=== PATIENT | female | born 1945 | race Caucasian/White ===

== ENCOUNTER → 2016-12-01 | Outpatient (CLI) | payer MEDICARE, OTHER ==
[2016-12-01 15:08] LABS: HEMOGLOBIN 13.6 g/dL (11.7-16.4)
[2016-12-01 15:21] LABS: BLOOD UREA NITROGEN 14 mg/dL (7-18)
[2016-12-01 15:30] LABS: ASPARTATE AMINO TRANSFERASE 15 U/L (15-37); TOTAL IRON BINDING CAPACITY 384 mcg/dL (250-450); TRANSFERRIN 315 mg/dL (200-360)
== END | disposition home or self-care (01) ==
LOC: LAB 14:53
PROVIDERS: ATTEND Nurse Practitioner Primary Care
DX: Z12.11 Encounter for screening for malignant neoplasm of colon (principal); K21.9 Gastro-esophageal reflux disease without esophagitis; M19.90 Unspecified osteoarthritis, unspecified site; E78.1 Pure hyperglyceridemia; E03.9 Hypothyroidism, unspecified; E55.9 Vitamin D deficiency, unspecified; F51.01 Primary insomnia; R53.82 Chronic fatigue, unspecified; M25.559 Pain in unspecified hip; M25.511 Pain in right shoulder; M54.9 Dorsalgia, unspecified; M79.605 Pain in left leg; R42 Dizziness and giddiness; Z79.890 Hormone replacement therapy
CPT/HCPCS: 36415; 80053; 82728; 83540; 83550; 84443; 84466; 85025

== ENCOUNTER 2017-03-10 14:30 | Emergency (ER) | payer MEDICARE, OTHER ==
[~2017-03-10] VITALS: Ht 180.3 cm; Wt 84.0 kg
[2017-03-10 14:42] VITALS: BP 129/81
[2017-03-10] MEDS ORDERED: DIPH,PERTUSS(ACELL),TET VAC/PF 0.5 ML IM-VACC ONE (15:00)
[2017-03-10] MEDS ORDERED: MICROFIBRILLAR COLLAGEN 0.5GM/PACK TP ONE (15:00)
[2017-03-10] MEDS ORDERED: LIDOCAINE 1%, 20ML SQ ONE (15:00)
[2017-03-10] MEDS ORDERED: MICROFIBRILLAR COLLAGEN 1 GM TP ONE ×2 (15:30→15:55)
== END 2017-03-10 16:21 | disposition home or self-care (01) ==
LOC: ED 16:15
DX: S61.301A Unspecified open wound of left index finger with damage to nail, initial encounter (principal); X50.1XXA Overexertion from prolonged static or awkward postures, initial encounter; Y93.89 Activity, other specified; Y92.009 Unspecified place in unspecified non-institutional (private) residence as the place of occurrence of the external cause; Y99.9 Unspecified external cause status
CPT/HCPCS: 99282

== ENCOUNTER → 2017-05-04 | Outpatient (CLI) | payer MEDICARE, OTHER | END | disposition home or self-care (01) | LOC: CFH 14:13 | PROVIDERS: ATTEND Nurse Practitioner Primary Care | DX: R92.2 Inconclusive mammogram (principal); E03.9 Hypothyroidism, unspecified; E78.5 Hyperlipidemia, unspecified | CPT/HCPCS: 76642 ==

== ENCOUNTER → 2017-07-15 | Outpatient (CLI) | payer MEDICARE, OTHER | END | disposition home or self-care (01) | LOC: CFH 08:21 | PROVIDERS: ATTEND Nurse Practitioner Primary Care | DX: Z13.820 Encounter for screening for osteoporosis (principal); M85.88 Other specified disorders of bone density and structure, other site; K21.9 Gastro-esophageal reflux disease without esophagitis; M19.90 Unspecified osteoarthritis, unspecified site; E78.1 Pure hyperglyceridemia; E03.9 Hypothyroidism, unspecified; F51.01 Primary insomnia; Z79.890 Hormone replacement therapy; Z78.9 Other specified health status | CPT/HCPCS: 77080 ==

== ENCOUNTER → 2017-09-09 | Outpatient (CLI) | payer MEDICARE, OTHER | END | disposition home or self-care (01) | LOC: CFH 14:57 | PROVIDERS: ATTEND Nurse Practitioner Primary Care | DX: E03.4 Atrophy of thyroid (acquired) (principal); E03.9 Hypothyroidism, unspecified; K21.9 Gastro-esophageal reflux disease without esophagitis; M19.90 Unspecified osteoarthritis, unspecified site; E78.1 Pure hyperglyceridemia; F51.01 Primary insomnia; Z79.890 Hormone replacement therapy; Z78.9 Other specified health status | CPT/HCPCS: 76536 ==